=== PATIENT | female | born 1990 | race Caucasian/White ===

== ENCOUNTER 2017-12-24 18:29 | Emergency (ER) | payer OTHER ==
[~2017-12-24] VITALS: Ht 160 cm; Wt 91.2 kg
[2017-12-24 18:30] VITALS: BP_SYST 122
[2017-12-24 20:27] LABS: BILIRUBIN,URINE NEGATIVE (NEGATIVE); BLOOD, URINE NEGATIVE (NEGATIVE); CLARITY/URINE CLEAR (CLEAR); COLOR,URINE YELLOW (YELLOW); GLUCOSE,URINE NEGATIVE (NEGATIVE); KETONES,URINE NEGATIVE (NEGATIVE); LEUKOCYTE ESTERASE ,URINE NEGATIVE (NEGATIVE); NITRITE, URINE NEGATIVE (NEGATIVE); PROTEIN URINE NEGATIVE (NEGATIVE); UROBILINOGEN,URINE 0.2 (0.2-1.0)
[2017-12-24 21:08] VITALS: BP_SYST 123
== END 2017-12-24 21:06 | disposition home or self-care (01) ==
LOC: SED 18:29
DX: O26.891 Other specified pregnancy related conditions, first trimester (principal); R10.2 Pelvic and perineal pain; R03.0 Elevated blood-pressure reading, without diagnosis of hypertension; Z90.49 Acquired absence of other specified parts of digestive tract; Z88.1 Allergy status to other antibiotic agents; Z3A.08 8 weeks gestation of pregnancy
CPT/HCPCS: 36415; 76801; 76817; 81003; 84702-TC; 99285

== ENCOUNTER 2018-02-25 06:05 | Emergency (ER) | payer OTHER, MEDICAID ==
[~2018-02-25] VITALS: Ht 160 cm; Wt 97.5 kg
[2018-02-25 06:10] VITALS: BP_SYST 113
--- NOTE | 2018-02-25 06:21 | NUR ---
Placed in room 8. Placed on clinical research monitor, blood pressure machine and pulse oximeter. To gown for exam. Triaged at bedside. Side rails up.
[2018-02-25] MEDS ORDERED: PREN1TAB81 PO (06:36)
--- NOTE | 2018-02-25 06:40 | NUR ---
Pt came in complaining of L arm pain which started an hour ago. Pt states that she has been having chest pain and SOB for 3 to 4 days. Pt states that she is 17 weeks but denies vaginal bleeding/cramps. Denies n/v/d or fever. No other complaints/injuries noted.
--- NOTE | 2018-02-25 06:45 | NUR ---
ER at bedside examining patient.
[2018-02-25 07:21] VITALS: BP_SYST 113
--- NOTE | 2018-02-25 07:21 | NUR ---
Patient given written and verbal discharge instructions and verbalizes understanding. ER MD Dr. Arroyo discussed with patient the results and treatment provided. Patient in stable condition. ID arm band removed. Patient educated on pain management and to follow up with PMD within 2-3 days. Pain Scale 0/10. Opportunity for questions provided and answered. Medication side effect fact sheet provided.
== END 2018-02-25 07:21 | disposition home or self-care (01) ==
LOC: SED 06:05
DX: M94.0 Chondrocostal junction syndrome [Tietze] (principal); Z88.1 Allergy status to other antibiotic agents
CPT/HCPCS: 93005; 99283